=== PATIENT | female | born 1980 ===

== ENCOUNTER 2022-11-16 19:52 | Emergency (ER) | payer OTHER ==
--- OUTSIDE RECORDS SUMMARY | 2022-11-16 20:05 | XMS REPORT | Continuity of Care Document ---
:1980 Author Organization [facility] t Address [address] [place] [address] Care Team Providers Name Role Phone PCP, PATIENT DOES NOT HAVE A Primary Care Physician Unavaila ble PREMA LAND III A Attending Clinician Unavailable PREMA LAND III A Admitting Clinician Unavailable Payers Payer Name Policy Type Policy Number Effective Date Expiration Date Vivi ANN [id number] 2008 2021 ADMINISTRATION 00:00:00 00:00:00 Problems This patient has no known problems. Allergies, Adverse Reactions, Alerts Allergy Allergy Status Severity Reaction(s) Onset Inactive Treating Comm ents Source Name Type Date Date Clinician NO KNOWN Drug Active [facility] ALLERGIE Class [facility] Medications This patient has no known medications. Procedures This patient has no known procedures. Encounters Start End Encounter Admission Attending Care Care Encounter Source Date/Time Date/Time Type Type Clinicians Facility Department ID 2019-10-04 2019-10-04 Emergency X EMERY HERRERA [facility] E[facility] [id number] [facility] 12:22:32 14:40:00 PREMA kaisa [facility] Results This patient has no known results.
[2022-11-16 20:45] LABS: Urine Blood 1+ (Negative); Urine Glucose Negative (Negative); Urine Protein Negative (Negative); Urine Specific Gravity 1.025 (1.005-1.030)
[2022-11-16 21:07] LABS: Absolute Lymphocytes (CBC) 3.8 K/uL (0.7-4.9); Hematocrit 43.2 % (36.0-45.0); Lymphocytes % 40.9 % (15.3-44.8); MCV 90.3 fL (80-100); MPV 7.1 fL (7.6-11.3); RBC Red Blood Cell Count 4.79 M/uL (3.86-4.86)
[2022-11-16] MEDS ORDERED: NA CHLORIDE 0.9% 1,000 ML ONE (21:10)
[2022-11-16] MEDS ORDERED: ONDANSETRON 4 MG/2 ML VIAL ONE (21:10)
[2022-11-16] MEDS ORDERED: KETOROLAC 30 MG/ML INJ ONE (21:10)
[2022-11-16 21:13] LABS: Urine Bacteria <20 /HPF (<20); Urine Crystals Unidentified Few /HPF (None Seen); Urine Mucus 1+ /HPF (None Seen)
[2022-11-16 21:23] LABS: Albumin 3.7 g/dL (3.4-5.0); Bilirubin Total 0.4 mg/dL (0.2-1.0); Potassium 3.5 mmol/L (3.5-5.1); Protein, Total 8.1 g/dL (6.4-8.2)
--- NOTE | 2022-11-16 21:47 | RAD REPORT ---
EXAM DESCRIPTION: CT - Abdomen Pelvis W Contrast - 11/16/2022 9:36 pm CLINICAL HISTORY: Abdominal pain COMPARISON: 2015 TECHNIQUE: Computed axial tomography of the abdomen pelvis was obtained. 100 cc Isovue-300 was admin istered intravenously. Oral contrast was not requested which limits evaluation of bowel and appendix All CT scans are performed using dose optimization technique as appropriate and may include automated exposure control or mA/KV adjustment according to patient size. FINDINGS: The liver, spleen, pancreas, adrenal and kidneys appear unremarkable. There is no evidence of diverticulitis. An abnormal appendix is not visualized No adnexal mass Small umbilical hernia IMPRESSION: No acute abnormality is displayed.
[2022-11-16] MEDS ORDERED: CEFTRIAXONE 1000 MG/VIAL ONE (22:00)
--- NOTE | 2022-11-16 22:47 | ER ---
Nurse's Notes [facility] Name: Harmony Pitt Age: 42 yrs Sex: Female : 1980 Arrival Date: 11/16/2022 Time: 19:55 Bed 6 Private MD: Diagnosis: UTI/ Urinary tract infection, site not specified Presentation: 11/16 20:23 Chief complaint: Patient states: I have been having lower abdominal pain and have been kd3 vomiting since Monday. the pain radiated to my back. My last period was sort of spotting. Not really a full period and that was on the . Onset of symptoms was November 12, 2022. 20:23 Method Of Arrival: Ambulatory kd3 20:23 Acuity: SCOTT 3 kd3 20:31 Coronavirus screen: Vaccine status: Patient reports being unvaccinated. Ebola Screen: kd3 No symptoms or risks identified at this time. Initial Sepsis Screen: Does the patient meet any 2 criteria? No. Patient's initial sepsis screen is negative. Does the patient have a suspected source of infection? No. Patient's initial sepsis screen is negative. Risk Assessment: Do you want to hurt yourself or someone else? Patient reports no desire to harm self or others. Triage Assessment: 20:32 General: Appears uncomfortable, Behavior is calm, cooperative. Pain: Complains of pain kd3 in right lower quadrant Pain radiates to left low back and right low back. Neuro: Level of Consciousness is awake, alert, obeys commands, Oriented to person, place, time, situation. GI: Reports nausea, vomiting. 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 - Social history:: Smoking status: unknown. Screenin:48 [facility] ED Fall Risk Assessment (Adult) History of falling in the last 3 months, ll3 including since admission No falls in past 3 months (0 pts). Abuse screen: Denies threats or abuse. Denies injuries from another. Nutritional screening: No deficits noted. Tuberculosis screening: No symptoms or risk factors identified. Assessment: 21:44 General: Appears uncomfortable, Behavior is calm, cooperative. Pain: Complains of pain ll3 in back and right lower quadrant Pain does not radiate. Pain currently is 8 out of 10 on a pain scale. Pain began 2-3 days ago. Is continuous. Neuro: Level of Consciousness is awake, alert, obeys commands, Oriented to person, place, time, situation. GI: Abdomen is round non-distended, Reports nausea, vomiting. GI: Reports lower abdominal pain. : Reports vaginal bleeding that is. Derm: Skin is pink, warm \T\ dry. Vital Signs: 20:31 BP 124 / 63; Pulse 62; Resp 18; Temp 98(O); Pulse Ox 99% on R/A; Weight 77.11 kg; kd3 Height 5 ft. 6 in. (167.64 cm); 22:15 BP 119 / 78; Pulse 72; Resp 17; Pulse Ox 100% on R/A; ll3 23:51 BP 103 / 56; Pulse 72; Resp 17; Pulse Ox 99% on R/A; ll3 20:31 Body Mass Index 27.44 (77.11 kg, 167.64 cm) kd3 ED Course: 19:55 Patient arrived in ED. ja2 20:25 Cher Jackson FNP-C is PHCP. snw 20:25 Truman Simon MD is Attending Physician. snw 20:27 Triage completed. kd3 20:32 Arm band placed on. kd3 20:37 Initial lab(s) drawn, by me, sent to lab. Inserted saline lock: 22 gauge in right ll3 antecubital area, using aseptic technique. Blood collected. 21:37 CT Abd/Pelvis - IV Contrast Only In Process Unspecified. EDMS 23:48 Patient has correct armband on for positive identification. Placed in gown. Bed in low ll3 position. Call light in reach. Side rails up X 1. 23:48 No provider procedures requiring assistance completed. IV discontinued, intact, ll3 bleeding controlled, No redness/swelling at site. Pressure dressing applied. Administered Medications: 21:13 Drug: NS 0.9% 1000 ml Route: IV; Rate: 1 bolus; Site: right antecubital; ll3 23:49 Follow up: Response: No adverse reaction; IV Status: Completed infusion; IV Intake: ll3 1000ml 21:13 Drug: Ketorolac 30 mg Route: IVP; Site: right antecubital; ll3 23:49 Follow up: Response: No adverse reaction; Marked relief of symptoms ll3 21:13 Drug: Zofran (Ondansetron) 4 mg Route: IVP; Site: right antecubital; ll3 23:50 Follow up: Response: No adverse reaction; Marked relief of symptoms ll3 22:03 Drug: Rocephin (cefTRIAXone) 1 grams Route: IV; Rate: calculated rate; Site: right ll3 antecubital; 23:48 Follow up: Response: No adverse reaction; IV Status: Completed infusion; IV Intake: [id number] Medication: 23:48 VIS not applicable for this client. ll3 Intake: 23:48 IV: 10ml; Total: 10ml. ll3 23:49 IV: 1000ml; Total: 1010ml. ll3 Outcome: 22:47 Discharge ordered by . desmond 23:48 Discharged to home ambulatory. ll3 23:48 Condition: stable 23:48 Discharge instructions given to patient, Instructed on discharge instructions, follow up and referral plans. medication usage, Demonstrated understanding of instructions, follow-up care, medications, Prescriptions given X 2. 23:52 Patient left the ED. 3 Signatures: Dispatcher [employer] EDMS Cher Jackson, CLOTH COLORS EXAMINER-C CLOTH COLORS EXAMINER-Csnw Mary Lock [place], RN RN ll3 Yuly Valles RN RN kd3
--- NOTE | 2022-11-16 22:47 | EDPHYS ---
Physician Documentation [facility] Name: Harmony Pitt Age: 42 yrs Sex: Female : 1980 Arrival Date: 11/16/2022 Time: 19:55 Bed 6 Private MD: ED Physician Truman Simon HPI: 11/16 21:07 This 42 yrs old Female presents to ER via Ambulatory with complaints of snw Nausea/Vomiting, Vaginal Bleeding, Abdominal Pain, Back Pain. 21:07 The patient presents to the emergency department with nausea, vomiting. Onset: The snw symptoms/episode began/occurred 5 day(s) ago, and became persistent. The symptoms are aggravated by pressure, food , The symptoms are alleviated by nothing. Severity of symptoms: At their worst the symptoms were moderate. The patient has not experienced similar symptoms in the past. The patient has not recently seen a physician. pt states normal menstrual cycles are 4 days long, this time the cycle did not last and then she had some breakthrough bleeding. 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 - Social history:: Smoking status: unknown. ROS: 21:06 Constitutional: Negative for fever, chills, and weight loss, Eyes: Negative for injury, snw pain, redness, and discharge, ENT: Negative for injury, pain, and discharge, Neck: Negative for injury, pain, and swelling, Cardiovascular: Negative for chest pain, palpitations, and edema, Respiratory: Negative for shortness of breath, cough, wheezing, and pleuritic chest pain, : Negative for injury, bleeding, discharge, and swelling, MS/Extremity: Negative for injury and deformity, Skin: Negative for injury, rash, and discoloration, Neuro: Negative for headache, weakness, numbness, tingling, and seizure, Psych: Negative for depression, anxiety, suicide ideation, homicidal ideation, and hallucinations. 21:06 Abdomen/GI: Positive for abdominal pain, nausea and vomiting. 21:06 Back: Positive for flank pain, on the right. Exam: 21:06 Constitutional: This is a well developed, well nourished patient who is awake, alert, snw and in no acute distress. Head/Face: Normocephalic, atraumatic. Eyes: Pupils equal round and reactive to light, extra-ocular motions intact. Lids and lashes normal. Conjunctiva and sclera are non-icteric and not injected. Cornea within normal limits. Periorbital areas with no swelling, redness, or edema. ENT: Nares patent. No nasal discharge, no septal abnormalities noted. Tympanic membranes are normal and external auditory canals are clear. Oropharynx with no redness, swelling, or masses, exudates, or evidence of obstruction, uvula midline. Mucous membranes moist. Neck: Trachea midline, no thyromegaly or masses palpated, and no cervical lymphadenopathy. Supple, full range of motion without nuchal rigidity, or vertebral point tenderness. No Meningismus. Chest/axilla: Normal chest wall appearance and motion. Nontender with no deformity. No lesions are appreciated. Cardiovascular: Regular rate and rhythm with a normal S1 and S2. No gallops, murmurs, or rubs. Normal PMI, no JVD. No pulse deficits. Respiratory: Lungs have equal breath sounds bilaterally, clear to auscultation and percussion. No rales, rhonchi or wheezes noted. No increased work of breathing, no retractions or nasal flaring. Back: No spinal tenderness. No costovertebral tenderness. Full range of motion. Skin: Warm, dry with normal turgor. Normal color with no rashes, no lesions, and no evidence of cellulitis. MS/ Extremity: Pulses equal, no cyanosis. Neurovascular intact. Full, normal range of motion. Neuro: Awake and alert, GCS 15, oriented to person, place, time, and situation. Cranial nerves II-XII grossly intact. Motor strength 5/5 in all extremities. Sensory grossly intact. Cerebellar exam normal. Normal gait. Psych: Awake, alert, with orientation to person, place and time. Behavior, mood, and affect are within normal limits. 21:06 Abdomen/GI: Inspection: abdomen appears normal, Bowel sounds: normal, Palpation: moderate abdominal tenderness, in the right lower quadrant, Indicators: McBurney's point is tender. Vital Signs: 20:31 BP 124 / 63; Pulse 62; Resp 18; Temp 98(O); Pulse Ox 99% on R/A; Weight 77.11 kg; kd3 Height 5 ft. 6 in. (167.64 cm); 22:15 BP 119 / 78; Pulse 72; Resp 17; Pulse Ox 100% on R/A; ll3 23:51 BP 103 / 56; Pulse 72; Resp 17; Pulse Ox 99% on R/A; ll3 20:31 Body Mass Index 27.44 (77.11 kg, 167.64 cm) kd3 MDM: 20:27 Patient medically screened. nikki 21:11 Differential diagnosis: appendicitis, viral gastroenteritis, uterine snw fibroids/UTI/pyelonephritis. Data reviewed: vital signs, nurses notes. 11/16 20:36 Order name: CBC with Diff; Complete Time: 21:11 3 11/16 20:36 Order name: CMP; Complete Time: 21:24 3 11/16 20:36 Order name: Lipase; Complete Time: 21:24 3 11/16 20:45 Order name: Urine Dipstick-Ancillary; Complete Time: 20:46 EDMS 11/16 20:47 Order name: Urine Culture [facility] 11/16 20:36 Order name: IV Saline Lock; Complete Time: 20:37 3 11/16 20:36 Order name: Labs collected and sent; Complete Time: 20:37 3 11/16 20:47 Order name: Urine Microscopic Only; Complete Time: 21:13 snw 11/16 21:02 Order name: CT Abd/Pelvis - IV Contrast Only; Complete Time: 21:50 [facility] 11/16 20:36 Order name: Urine Dipstick-Ancillary (obtain specimen); Complete Time: 20:47 3 11/16 20:36 Order name: Urine Test (obtain specimen); Complete Time: 20:47 ll3 Administered Medications: 21:13 Drug: NS 0.9% 1000 ml Route: IV; Rate: 1 bolus; Site: right antecubital; ll3 23:49 Follow up: Response: No adverse reaction; IV Status: Completed infusion; IV Intake: ll3 1000ml 21:13 Drug: Ketorolac 30 mg Route: IVP; Site: right antecubital; ll3 23:49 Follow up: Response: No adverse reaction; Marked relief of symptoms ll3 21:13 Drug: Zofran (Ondansetron) 4 mg Route: IVP; Site: right antecubital; ll3 23:50 Follow up: Response: No adverse reaction; Marked relief of symptoms ll3 22:03 Drug: Rocephin (cefTRIAXone) 1 grams Route: IV; Rate: calculated rate; Site: right ll3 antecubital; 23:48 Follow up: Response: No adverse reaction; IV Status: Completed infusion; IV Intake: [id number] Disposition Summary: 11/16/22 22:47 Discharge Ordered Location: Home snw Condition: Stable snw Diagnosis - UTI/ Urinary tract infection, site not specified snw Followup: snw - With: Emergency Department - When: As needed - Reason: Worsening of condition Followup: snw - With: Private Physician - When: 5 - 6 days - Reason: Recheck today's complaints, Continuance of care, Re-evaluation by your physician Discharge Instructions: - Discharge Summary Sheet snw - Urinary Tract Infection, Adult snw - Rehydration, Adult snw Forms: - Medication Reconciliation Form snw - Thank You Letter snw - Antibiotic Education snw - Prescription Opioid Use snw Prescriptions: - Augmentin 875-125 mg Oral Tablet - take 1 tablet by ORAL route every 12 hours for 10 days; 20 tablet; Refills: 0, snw Product Selection Permitted - Mobic 7.5 mg Oral Tablet - take 1 tablet by ORAL route once daily take with food; 20 tablet; Refills: 0, snw Product Selection Permitted Signatures: Dispatcher [employer] Truman Calloway MD MD cha Waters, Shelly, SUBSTANCE ABUSE CLINICIAN-C SUBSTANCE ABUSE CLINICIAN-Csnw Roseanna Gaspar, RN RN ll3 Yuly Valles, RN RN kd3
[2022-11-17 00:33] VITALS: TEMP 98
[2022-11-17 00:35] VITALS: BP 103/56; O2SAT 99
== END 2022-11-16 23:52 | disposition home or self-care (01) ==
LOC: ER 19:52
DX: N39.0 Urinary tract infection, site not specified (principal)
CPT/HCPCS: 87088; 85025; 87086; 36415; 83690; 80053; 74177; Q9967; J7030; J2405; 81003; 81015; 96361; 96365; 96366; 96375; 99284